=== PATIENT | female | born 1985 | race Caucasian/White ===

== ENCOUNTER 2017-04-10 13:53 | Emergency (ER) | payer SELFPAY ==
[~2017-04-10] VITALS: Ht 154.9 cm; Wt 81.2 kg
[~2017-04-10 13:53] MED LIST: DIVA500T2 PO; TRAZ100T12 PO
[2017-04-10 14:56] LABS: BILIRUBIN,URINE NEGATIVE (NEG); GLUCOSE,URINE NEGATIVE (NEG); NITRITE,URINE POSITIVE (NEG); PROTEIN,URINE 30 mg/dL (NEG-TRACE)
[2017-04-10 15:06] LABS: BASO # 0.1 x10^3/uL (0.0-0.2); BASO % 1 % (0-3); EOS % 2 % (0-3); HEMATOCRIT 49.9 % (36.0-47.0); HEMOGLOBIN 16.8 g/dL (12.0-15.5); LYMPH # 2.6 x10^3/uL (1.0-4.8); LYMPH % 25 % (24-48); MEAN CORPUSCULAR HEMOGLOBIN 34 pg (25-35); MEAN CORPUSCULAR HGB CONC 34 g/dL (31-37); MEAN CORPUSCULAR VOLUME 100 fL (79-100); MONO % 6 % (0-9); NEUT % 67 % (31-73); PLATELET COUNT 210 x10^3/uL (140-400); RED BLOOD COUNT 4.98 x10^6/uL (3.50-5.40); RED CELL DISTRIBUTION WIDTH 16.7 % (11.5-14.5); WHITE BLOOD COUNT 10.4 x10^3/uL (4.0-11.0)
[2017-04-10 15:15] LABS: BACTERIA,URINE MODERATE /HPF (0-FEW); SQUAMOUS EPITHELIAL CELL,UR OCC /LPF
[2017-04-10 15:21] LABS: CALCIUM 9.2 mg/dL (8.5-10.1); CREATININE 0.9 mg/dL (0.6-1.0); GFR 72.1; POTASSIUM 3.8 mmol/L (3.5-5.1)
[2017-04-10 15:26] LABS: ALBUMIN 3.4 g/dL (3.4-5.0); ALBUMIN/GLOBULIN RATIO 0.9 (1.0-1.7); TOTAL BILIRUBIN 0.8 mg/dL (0.2-1.0); TOTAL PROTEIN 7.1 g/dL (6.4-8.2)
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
[2017-04-10] MEDS ORDERED: CIPR500T94 PO (16:28)
[2017-04-10] MEDS ORDERED: cefTRIAXone IM 250 MG VIAL IM ONE (16:30)
[2017-04-10] MEDS ORDERED: AZITHROMYCIN 250 MG TABLET. PO ONE (16:30)
[2017-04-10 16:38] VITALS: BP 112/67
== END 2017-04-10 17:01 | disposition home or self-care (01) ==
LOC: ER 13:53
DX: N39.0 Urinary tract infection, site not specified (principal); N73.9 Female pelvic inflammatory disease, unspecified; F41.9 Anxiety disorder, unspecified; F43.10 Post-traumatic stress disorder, unspecified; F31.9 Bipolar disorder, unspecified; F12.10 Cannabis abuse, uncomplicated; F17.200 Nicotine dependence, unspecified, uncomplicated
CPT/HCPCS: 36415; 80053; 81001; 82947; 84703; 85027; 87086; 87186; 87491; 87591; 96372; 99284; J0696; Q0111; Q0144; 81025

== ENCOUNTER 2017-05-30 00:21 | Emergency (ER) | payer SELFPAY ==
[~2017-05-30] VITALS: Ht 167.6 cm; Wt 77.1 kg
[~2017-05-30 00:21] MED LIST changes: +CIPR500T94 PO
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
--- NOTE | 2017-05-30 02:21 | RAD ---
INDICATION: Trauma COMPARISON: None. TECHNIQUE: Axial CT images obtained through the head, face and cervical spine without intravenous contrast. Coronal and sagittal reformats processed of cervical spine. One or more of the following individualized dose reduction techniques were utilized for this examination: 1. Automated exposure control; 2. Adjustment of the mA and/or kV according to patient size; 3. Use of iterative reconstruction technique. FINDINGS: Head: No intracranial hemorrhage. No midline shift. Basal cisterns patents. Ventricles and sulci are within normal limits. No acute osseous abnormality. Cervical: No definite acute fracture. No significant malalignment. No evidence of perivertebral hematoma. Facial: Right frontal scalp cephalohematoma. No retro-orbital mass or hematoma. Suspected right inferior orbital wall fracture. There is fat extending through the defect. The inferior medial aspect of the inferior rectus muscle may also extend into the defect for a short distance. IMPRESSION: No acute intracranial hemorrhage. No definite acute fracture or dislocation of the cervical spine. Right frontal scalp cephalohematoma. 41 x 28 mm lytic lesion right side of mandible. Difficult to tell if this is secondary to causes such as odontogenic disease with destruction of mandible or if this is secondary to a lytic destructive mass within the region including from infectious etiology or neoplastic causes. If further clarification is desired nonemergent MRI with and without contrast could further evaluate. Additional periapical lucency at multiple right-sided maxillary teeth could be from odontogenic disease with periapical abscess. Suspected right inferior orbital wall fracture. Electronically signed by: Abel Jeronimo MD (05/30/2017 2:17 AM) [facility]
[2017-05-30 03:00] VITALS: BP 147/80
== END 2017-05-30 03:07 | disposition home or self-care (01) ==
LOC: ER 00:21
DX: S09.90XA Unspecified injury of head, initial encounter (principal); F43.10 Post-traumatic stress disorder, unspecified; F31.9 Bipolar disorder, unspecified; F12.10 Cannabis abuse, uncomplicated; Y08.89XA Assault by other specified means, initial encounter; Y93.89 Activity, other specified; Y99.8 Other external cause status; Y92.89 Other specified places as the place of occurrence of the external cause
CPT/HCPCS: 51701; 70450; 70486; 72125; 81025; 99284-25

== ENCOUNTER 2018-04-11 17:41 | Observation (INO) | payer OTHER ==
[2018-04-11] MEDS ORDERED: IV RINGERS,LACTATED 1000ML 1,000 ML IV (18:17)
[2018-04-11 18:29] LABS: BILIRUBIN,URINE NEGATIVE (NEG); CLARITY,URINE CLEAR; COLOR,URINE YELLOW; GLUCOSE,URINE NEGATIVE (NEG); NITRITE,URINE NEGATIVE (NEG); PH,URINE 6.5; PROTEIN,URINE NEGATIVE (NEG-TRACE)
[2018-04-11 18:36] LABS: BACTERIA,URINE FEW /HPF (0-FEW); HYALINE CASTS, URINE FEW /HPF; RBC,URINE OCC /HPF (0-2); SQUAMOUS EPITHELIAL CELL,UR MOD /LPF
[2018-04-11 18:44] LABS: BARBITURATES NEG (NEG); BENZODIAZEPINES NEG (NEG); CANNABINOIDS NEG (NEG); COCAINE NEG (NEG); METHADONE NEG (NEG); OPIATES NEG (NEG); PHENCYCLIDINE NEG (NEG)
[2018-04-11 18:50] LABS: AMPHETAMINE/METHAMPHETAMINE NEG (NEG); ETHANOL, URINE NEG (NEG)
== END 2018-04-11 19:40 | disposition home or self-care (01) ==
LOC: 3 SO LND 17:41
DX: O46.93 Antepartum hemorrhage, unspecified, third trimester (principal); Z3A.35 35 weeks gestation of pregnancy
CPT/HCPCS: 80307; 81001; 87086; G0378; G0379

== ENCOUNTER 2018-05-07 08:11 | Inpatient (IN) | payer OTHER ==
[2018-05-07] MEDS ORDERED: IBUPROFEN 800 MG TABLET. PO (08:45)
[2018-05-07] MEDS ORDERED: OXYTOCIN 30 UNIT/500 ML PREMIX 500 ML IV ×2 (08:45→18:15)
[2018-05-07] MEDS ORDERED: LIDOCAINE 1% PF 30 ML VIAL. INJ (08:45)
[2018-05-07] MEDS: fentaNYL PF VIAL 100 MCG/2 ML VIAL IV (08:58)
[2018-05-07] MEDS: CITRIC ACID/SODIUM CITRATE 30 ML SOLUTION. PO (08:59)
[2018-05-07] MEDS: IV RINGERS,LACTATED 1000ML 1,000 ML IV ×3 (09:01→16:11)
[2018-05-07 09:02] LABS: BILIRUBIN,URINE NEGATIVE (NEG); CLARITY,URINE CLOUDY; COLOR,URINE YELLOW; GLUCOSE,URINE NEGATIVE (NEG); NITRITE,URINE NEGATIVE (NEG); PH,URINE 7.5; PROTEIN,URINE NEGATIVE (NEG-TRACE); UROBILINOGEN,URINE 0.2 mg/dL (0.2 mg/dL)
[2018-05-07] MEDS: PENICILLIN G K 5,000,000 UNIT in IV DEXTROSE 5% 100ML 100 ML IV (09:03)
[2018-05-07] MEDS: ONDANSETRON PF 4 MG/2 ML VIAL. IV (09:05)
[2018-05-07 09:22] LABS: BARBITURATES NEG (NEG); BENZODIAZEPINES NEG (NEG); CANNABINOIDS NEG (NEG); COCAINE NEG (NEG); METHADONE NEG (NEG); OPIATES NEG (NEG); PHENCYCLIDINE NEG (NEG)
[2018-05-07 09:24] LABS: ADD MAN DIFF? NO
[2018-05-07 09:28] LABS: SQUAMOUS EPITHELIAL CELL,UR MANY /LPF
[2018-05-07 09:29] LABS: AMORPHOUS SEDIMENT,UR PRESENT /HPF; BACTERIA,URINE MANY /HPF (0-FEW)
[2018-05-07 09:31] LABS: BASO % 0 % (0-3); EOS # 0.1 x10^3/uL (0.0-0.7); EOS % 1 % (0-3); HEMATOCRIT 39.1 % (36.0-47.0); HEMOGLOBIN 13.5 g/dL (12.0-15.5); LYMPH # 2.9 x10^3/uL (1.0-4.8); LYMPH % 28 % (24-48); MEAN CORPUSCULAR HEMOGLOBIN 33 pg (25-35); MEAN CORPUSCULAR HGB CONC 35 g/dL (31-37); MEAN CORPUSCULAR VOLUME 96 fL (79-100); MONO # 0.9 x10^3/uL (0.0-1.1); MONO % 9 % (0-9); NEUT # 6.4 x10^3uL (1.8-7.7); NEUT % 61 % (31-73); PLATELET COUNT 175 x10^3/uL (140-400); RED BLOOD COUNT 4.07 x10^6/uL (3.50-5.40); RED CELL DISTRIBUTION WIDTH 13.9 % (11.5-14.5); WHITE BLOOD COUNT 10.5 x10^3/uL (4.0-11.0)
[2018-05-07 09:48] LABS: AMPHETAMINE/METHAMPHETAMINE NEG (NEG); ETHANOL, URINE NEG (NEG)
[2018-05-07] MEDS ORDERED: L&D EPIDURAL SYRINGE 50 ML EP (09:56)
[2018-05-07] MEDS ORDERED: ROPIVacaine 0.2% IN 0.9%NACL PF 40 MG/20 ML DISP.SYRIN. ×2 (09:56→10:00)
[2018-05-07] MEDS ORDERED: ONDANSETRON PF 4 MG/2 ML VIAL. IV (10:00)
[2018-05-07] MEDS ORDERED: NALOXONE 0.4 MG/ML VIAL. IV (10:00)
[2018-05-07] MEDS ORDERED: ePHEDrine PF IN SALINE 50 MG/5 ML DISP.SYRIN IV (10:00)
[2018-05-07] MEDS ORDERED: ROPIVacaine 0.2% PF 10 ML VIAL. EPI (10:00)
[2018-05-07] MEDS: L&D EPIDURAL SYRINGE 50 ML EP ×3 (10:27→17:11)
[2018-05-07] MEDS: fentaNYL PF VIAL 100 MCG/2 ML VIAL EPI (10:28)
[2018-05-07] MEDS: PENICILLIN G K 2,500,000 UNIT in IV DEXTROSE 5% 50 ML IV (12:51)
[2018-05-07] MEDS: OXYTOCIN 30 UNIT/500 ML PREMIX 500 ML IV (16:11)
[2018-05-07] MEDS ORDERED: PANTOPRAZOLE IV PUSH 40 MG VIAL. IVP (17:30)
[2018-05-07] MEDS ORDERED: ZOLPIDEM 5 MG TABLET. PO (18:15)
[2018-05-07] MEDS ORDERED: ACETAMINOPHEN 325 MG TABLET. PO (18:15)
[2018-05-07] MEDS ORDERED: SIMETHICONE 80 MG TAB.CHEW PO (18:15)
[2018-05-07] MEDS ORDERED: BENZOCAINE 20% TOPICAL AEROSOL SPRAY 57GM CAN. TP (18:15)
[2018-05-07] MEDS ORDERED: 0.9 % SODIUM CHLORIDE 10 ML DISP.SYRIN. IV (18:15)
[2018-05-07] MEDS ORDERED: diphenhydrAMINE HCL 25 MG CAPSULE PO (18:15)
[2018-05-07] MEDS ORDERED: HYDROCORTISONE 1% TOPICAL OINTMENT 30GM TUBE. TP (18:15)
[2018-05-07] MEDS ORDERED: MMR per PROTOCOL. MC (18:15)
[2018-05-07] MEDS ORDERED: PHENYLEPH/MINERAL OIL/PETROLAT RECTAL OINTMENT 28GM TUBE. RC (18:15)
[2018-05-07] MEDS: IBUPROFEN 800 MG TABLET. PO (20:33)
[2018-05-07] MEDS: MAG HYDROX/ALUMINUM HYD/SIMETH 30 ML ORAL.SUSP PO (23:38)
[2018-05-08] MEDS: IBUPROFEN 800 MG TABLET. PO ×2 (04:40→17:53)
[2018-05-08 05:02] LABS: ADD MAN DIFF? NO
[2018-05-08 05:07] LABS: BASO # 0.1 x10^3/uL (0.0-0.2); BASO % 1 % (0-3); EOS # 0.1 x10^3/uL (0.0-0.7); EOS % 1 % (0-3); HEMATOCRIT 34.9 % (36.0-47.0); LYMPH # 2.9 x10^3/uL (1.0-4.8); LYMPH % 20 % (24-48); MEAN CORPUSCULAR HEMOGLOBIN 34 pg (25-35); MEAN CORPUSCULAR HGB CONC 35 g/dL (31-37); MEAN CORPUSCULAR VOLUME 97 fL (79-100); MONO # 1.2 x10^3/uL (0.0-1.1); MONO % 9 % (0-9); NEUT # 9.8 x10^3uL (1.8-7.7); NEUT % 70 % (31-73); PLATELET COUNT 146 x10^3/uL (140-400); RED BLOOD COUNT 3.59 x10^6/uL (3.50-5.40); RED CELL DISTRIBUTION WIDTH 13.9 % (11.5-14.5)
[2018-05-08] MEDS: DOCUSATE SODIUM 100 MG CAPSULE. PO (09:09)
[2018-05-08] MEDS: FERROUS SULFATE 325 MG TABLET. PO (09:09)
[2018-05-08] MEDS: oxyCODONE/APAP 5/325 1 TAB TABLET PO (09:10)
[2018-05-09] MEDS: MAGNESIUM HYDROXIDE 2,400 MG/30 ML ORAL.SUSP. PO (09:00)
[2018-05-09] MEDS: DOCUSATE SODIUM 100 MG CAPSULE. PO (09:01)
[2018-05-09] MEDS: IBUPROFEN 800 MG TABLET. PO (09:01)
[2018-05-09 14:58] LABS: FETAL SCREEN 1 1
[2018-05-09] MEDS: DIPHTH,PERTUSS(ACELL),TET TOX 0.5 ML DISP.SYRIN. VAX IM (15:09)
== END 2018-05-09 17:27 | disposition home or self-care (01) | DRG 775 ==
LOC: 3 SO LND 08:11 → 3 NORTH 21:10
PROC: 10E0XZZ Delivery of Products of Conception, External Approach (ICD-10-PCS; principal; 2018-05-07)
PROC: 0HQ9XZZ Repair Perineum Skin, External Approach (ICD-10-PCS; 2018-05-07)
PROC: 00HU33Z Insertion of Infusion Device into Spinal Canal, Percutaneous Approach (ICD-10-PCS; 2018-05-07)
PROC: 3E0R3BZ Introduction of Anesthetic Agent into Spinal Canal, Percutaneous Approach (ICD-10-PCS; 2018-05-07)
PROC: 3E0234Z Introduction of Serum, Toxoid and Vaccine into Muscle, Percutaneous Approach (ICD-10-PCS; 2018-05-09)
DX: O99.824 Streptococcus B carrier state complicating childbirth (principal); Z37.0 Single live birth; O77.0 Labor and delivery complicated by meconium in amniotic fluid; Z3A.39 39 weeks gestation of pregnancy; O70.0 First degree perineal laceration during delivery; Z23 Encounter for immunization
CPT/HCPCS: 36415; 80307; 81001; 85025; 85461; 86592; 86850; 86900; 86901; 87086; 88307; 90715; G0379; J2405; J2540; J2590; J2791; J2795; J3010; J7120

== ENCOUNTER 2018-08-07 12:55 | Emergency (ER) | payer OTHER ==
[~2018-08-07] VITALS: Ht 154.9 cm; Wt 69.9 kg
[~2018-08-07 12:55] MED LIST changes: +IBUP800T19 PO; +ONDA8TAB9 PO; +TRAZ-86 PO; -TRAZ100T12 PO
[2018-08-07] MEDS ORDERED: predniSONE 10 MG TABLET PO ONE (14:30)
[2018-08-07] MEDS ORDERED: IPRATRPIUM/ALBUTEROL 0.5/2.5MG 3 ML NEBU. NEB ONE (14:30)
[2018-08-07] MEDS ORDERED: BENZONATATE 100 MG CAPSULE. PO ONE (14:30)
--- NOTE | 2018-08-07 14:42 | RAD ---
EXAM: Chest, single view. HISTORY: Short of breath. COMPARISON: None. FINDINGS: A frontal view of the chest is obtained. There is no infiltrate, pleural effusion or pneumothorax. The heart is normal in size. IMPRESSION: No acute pulmonary finding. Electronically signed by: Tiffany Grant MD (08/07/2018 2:39 PM) [place] [id number]
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
[2018-08-07] MEDS ORDERED: BENZ100C PO (15:55)
[2018-08-07] MEDS ORDERED: VENTOLIN HFA18 GM INH (15:55)
[2018-08-07] MEDS ORDERED: diazePAM 5 MG TABLET PO ONE (16:00)
[2018-08-07 16:18] VITALS: BP 129/61
--- NOTE | 2018-08-07 19:15 | EKG ---
[facility] [address] [place] [address] Test Date: 2018-08-07 Test Time: 14:12:56 Pat Name: STEFANIE LINN Department: Room: Gender: Female [employer]ine Plant [employer]: : 1985 Requested By: STAFF NON Order Number: [id number] Reading MD: iNco Simmons MD Measurements Intervals [place] Rate: 107 P: 129 MS: 122 QRS: 87 QRSD: 78 T: 41 QT: 326 QTc: 441 Interpretive Statements SINUS TACHYCARDIA BASELINE ARTIFACT NON-SPECIFIC ST/T CHANGES Electronically Signed On 08-08-2018 8:09:38 CDT by Nico Simmons MD
== END 2018-08-07 16:34 | disposition home or self-care (01) ==
LOC: ER 12:55
DX: J06.9 Acute upper respiratory infection, unspecified (principal); F41.9 Anxiety disorder, unspecified; F31.9 Bipolar disorder, unspecified; F43.10 Post-traumatic stress disorder, unspecified; F17.210 Nicotine dependence, cigarettes, uncomplicated
CPT/HCPCS: 71045; 93005; 94640; 99284; J7512; J7620

== ENCOUNTER → 2020-03-23 | Outpatient (CLI) | payer MEDICAID, OTHER ==
[~2020-03-23] MED LIST changes: +BENZ100C PO; +TRAZ-123 PO; -TRAZ-86 PO; +VENTOLIN HFA18 GM INH
--- NOTE | 2020-03-23 11:47 | RAD ---
Examination: 1. Bilateral digital diagnostic mammogram. 2. Bilateral Limited breast ultrasound. INDICATION: 34-year-old woman with left breast lump draining purulent material. She also complains of a palpable area of concern in the right breast. She reports a history of 6 months of intermittent drainage of purulent material from the left breast requiring previous drainage of a large volume of purulent material from the left breast. TECHNIQUE: Bilateral CC and MLO views were obtained with 2-D and 3-D technique and reviewed with computer-aided detection. Thereafter, targeted ultrasound of each breast in the area of patient reported concern was performed including ultrasound of the axilla. FINDINGS: Bilateral mammogram shows breasts are almost entirely fatty replaced. Right mammogram shows a 1.2 cm long subcutaneous nodule correlating with the area of palpable concern at the inferior periareolar right breast. This is isodense to the breast parenchyma and has smooth margins with no associated calcifications or skin retraction. Targeted right breast ultrasound identifies a 1.0 x 0.8 x 0.6 cm hypoechoic nonvascular round mass in the skin with some peripheral vascularity. This most likely represents a sebaceous cyst and should be managed clinically including biopsy if clinically warranted. Sonographic survey of the right axilla reveals no adenopathy. Left mammogram shows a 1.4 cm spiculated mass in the subareolar breast associated with nipple retraction and mild skin thickening. This is mammographically suspicious and correlates with the patient's reported area of palpable concern. Targeted ultrasound of the left breast in the area of palpable concern identifies irregular hypoechoic tissue measuring 2.0 x 1.0 x 1.6 cm available o'clock position that correlates with the patient's reported area of palpable concern. No internal vascularity. Sonographic survey of the left axilla reveals a few lymph nodes with borderline cortical thickening up to 3.6 mm. Favor reactive nodes. IMPRESSION: 1. Suspicious spiculated 1.4 cm subareolar left breast mass, most likely representing phlegmon or scarring from previous breast abscess but needs tissue confirmation of a benign etiology. Recommend surgical consult for definitive management planning. It is amenable to ultrasound-guided core needle biopsy is desired for surgical planning. Discussed with patient. 2. Benign appearing palpable nodule in the subareolar right breast, favored to be a sebaceous cyst. This should be managed clinically including biopsy if there are any clinically suspicious features. BI-RADS Category 4: Suspicious. Recommend surgical consult BI-RADS 4 -- suspicious abnormality, biopsy recommended
== END | disposition home or self-care (01) ==
LOC: MAMMO 10:10
PROVIDERS: ATTEND Specialist
DX: N63.20 Unspecified lump in the left breast, unspecified quadrant (principal); N63.10 Unspecified lump in the right breast, unspecified quadrant
CPT/HCPCS: 76641; 77066; G0279; 77062

== ENCOUNTER → 2020-04-24 | Outpatient (CLI) | payer MEDICAID ==
[~2020-04-24] MED LIST changes: +ALPR2TAB2 PO; +CARI6CAP PO; +LEXAPRO20 MG PO; +MIRT15TA PO; +OXYC-325 PO; +SULF1TAB24 PO
--- NOTE | 2020-04-27 13:31 | HP ---
ADMIT DATE: HISTORY OF PRESENT ILLNESS: The patient about 8 months ago had a mass of the left breast that proved to be an abscess and this was drained apparent in the Emergency Room. Since that time, she has had continuous drainage there and mass is not going away totally and she also has a mass under the nipple. This is all on the left. She did have a mass in the right breast that did not drain and get infected and this is decreasing now. PAST MEDICAL HISTORY: Shows she has had childhood diseases, which was normal. She has had no surgery. She has no diabetes, high blood pressure or other diseases to her knowledge. She has only had a tooth pulled and has never had a . ALLERGIES: She has no allergies. MEDICATIONS: She takes no medication. SOCIAL HISTORY: She smokes marijuana on occasion, but does not smoke, drink or use illicit drugs. FAMILY HISTORY: Noncontributory. REVIEW OF SYSTEMS: Negative except for the left breast, which has a chronic draining area there just medial to the top portion of areolar tissue and it is probably medial to the nipple about 2-3 cm. PHYSICAL EXAMINATION: GENERAL: Shows an alert female in no acute distress. HEAD, EYES, NOSE AND THROAT: Grossly normal. CHEST: Clear to auscultation bilaterally. HEART: Had no heaves, friction rubs, murmurs or other abnormalities and the rate was 74 beats per minute and it was regular. ABDOMEN: Not examined. BREASTS: The examination of the axillary areas, right and left was negative. The right breast examination did show a small mass which could not be seen mammographically and is much smaller than it had been previously. I did examine her prior to this and she did have a mass, which was prominent, but now it is going away, is barely perceptible. The left breast, she has skin retraction as she had before. No pus could be seen at this time and she has a track from this area just a little superior and medial to the nipple, goes 3-4 cm up to under the nipple. There is no evidence of infection, inflammation or anything at this time and no pus could be obtained. The mass is firm and per x-rays prove not to be cystic. IMPRESSION: 1. Mass of the left breast. 2. Chronic infection of left breast. PLAN: To remove the mass and the infected area. The mammogram was done, did show a suspicious area in this area and she did not want any biopsies as she wanted it removed and she wanted the chronic infection also treated. Therefore, we will excise all the area and she realizes this may leave her with her somewhat deformed nipple and it may invert. She understands this and stated she did not care. She wanted the mass out. VALERY VALLADARES MD DR: NATALIIA/luz JOB#: [id number] / [id number] RUTH
== END ==
LOC: LAB 13:08
PROVIDERS: ATTEND Specialist
DX: N63.20 Unspecified lump in the left breast, unspecified quadrant (principal); Z01.818 Encounter for other preprocedural examination; Z11.59 Encounter for screening for other viral diseases
CPT/HCPCS: 36415; U0003

== ENCOUNTER 2020-04-28 07:26 | Day surgery (SDC) | payer MEDICAID ==
[~2020-04-28] VITALS: Ht 154.9 cm; Wt 61.2 kg
--- NOTE | 2020-04-28 06:52 | HP ---
ADMIT DATE: HISTORY OF PRESENT ILLNESS: The patient about 8 months ago had a mass of the left breast that proved to be an abscess and this was drained apparent in the Emergency Room. Since that time, she has had continuous drainage there and mass is not going away totally and she also has a mass under the nipple. This is all on the left. She did have a mass in the right breast that did not drain and get infected and this is decreasing now. PAST MEDICAL HISTORY: Shows she has had childhood diseases, which was normal. She has had no surgery. She has no diabetes, high blood pressure or other diseases to her knowledge. She has only had a tooth pulled and has never had a . ALLERGIES: She has no allergies. MEDICATIONS: She takes no medication. SOCIAL HISTORY: She smokes marijuana on occasion, but does not smoke, drink or use illicit drugs. FAMILY HISTORY: Noncontributory. REVIEW OF SYSTEMS: Negative except for the left breast, which has a chronic draining area there just medial to the top portion of areolar tissue and it is probably medial to the nipple about 2-3 cm. PHYSICAL EXAMINATION: GENERAL: Shows an alert female in no acute distress. HEAD, EYES, NOSE AND THROAT: Grossly normal. CHEST: Clear to auscultation bilaterally. HEART: Had no heaves, friction rubs, murmurs or other abnormalities and the rate was 74 beats per minute and it was regular. ABDOMEN: Not examined. BREASTS: The examination of the axillary areas, right and left was negative. The right breast examination did show a small mass which could not be seen mammographically and is much smaller than it had been previously. I did examine her prior to this and she did have a mass, which was prominent, but now it is going away, is barely perceptible. The left breast, she has skin retraction as she had before. No pus could be seen at this time and she has a track from this area just a little superior and medial to the nipple, goes 3-4 cm up to under the nipple. There is no evidence of infection, inflammation or anything at this time and no pus could be obtained. The mass is firm and per x-rays prove not to be cystic. IMPRESSION: 1. Mass of the left breast. 2. Chronic infection of left breast. PLAN: To remove the mass and the infected area. The mammogram was done, did show a suspicious area in this area and she did not want any biopsies as she wanted it removed and she wanted the chronic infection also treated. Therefore, we will excise all the area and she realizes this may leave her with her somewhat deformed nipple and it may invert. She understands this and stated she did not care. She wanted the mass out. VALERY VALLADARES MD DR: NATALIIA/luz JOB#: [id number] / [id number] RUTH
[~2020-04-28 07:26] MED LIST changes: +HYDROmorphone 2 MG/ML VIAL IV PRN; +IV RINGERS,LACTATED 1000ML 1,000 ML IV SCH; +LIDOCAINE 1% PF 2 ML VIAL. ID PRN; +MORPHINE SULFATE 2 MG/ML VIAL. IV PRN; +ONDANSETRON PF 4 MG/2 ML VIAL. IV PRN; -OXYC-325 PO; +PROCHLORPERAZINE 10 MG/2 ML VIAL. IV PRN; -SULF1TAB24 PO; +ceFAZolin SODIUM IV Push 1 GM VIAL. IVP PRN; +fentaNYL PF VIAL 100 MCG/2 ML VIAL IV PRN
[2020-04-28 08:07] LABS: BASO # 0.1 x10^3/uL (0.0-0.2); BASO % 1 % (0-3); EOS # 0.3 x10^3/uL (0.0-0.7); EOS % 2 % (0-3); HEMATOCRIT 46.4 % (36.0-47.0); HEMOGLOBIN 15.7 g/dL (12.0-15.5); LYMPH # 3.1 x10^3/uL (1.0-4.8); LYMPH % 28 % (24-48); MEAN CORPUSCULAR HEMOGLOBIN 32 pg (25-35); MEAN CORPUSCULAR HGB CONC 34 g/dL (31-37); MEAN CORPUSCULAR VOLUME 93 fL (79-100); MONO # 1.2 x10^3/uL (0.0-1.1); MONO % 10 % (0-9); NEUT # 6.5 x10^3/uL (1.8-7.7); NEUT % 59 % (31-73); PLATELET COUNT 252 x10^3/uL (140-400); RED BLOOD COUNT 4.98 x10^6/uL (3.50-5.40); RED CELL DISTRIBUTION WIDTH 15.6 % (11.5-14.5); WHITE BLOOD COUNT 11.2 x10^3/uL (4.0-11.0)
[2020-04-28 08:17] LABS: PROTHROMBIN TIME PATIENT 11.9 SEC (11.7-14.0)
[2020-04-28 08:21] LABS: CALCIUM 8.9 mg/dL (8.5-10.1); CREATININE 1.1 mg/dL (0.6-1.0); GFR 56.2; POTASSIUM 4.6 mmol/L (3.5-5.1)
[2020-04-28] MEDS ORDERED: ONDANSETRON PF 4 MG/2 ML VIAL. ONE (08:26)
[2020-04-28] MEDS ORDERED: LIDOCAINE 2% PF 5 ML VIAL. ONE (08:26)
[2020-04-28] MEDS ORDERED: PROPOFOL 10 MG/ML (20ML) VIAL. IV ONE ×3 (08:26→10:53)
[2020-04-28] MEDS ORDERED: DEXAMETHASONE SOD PHOS 4 MG/ML VIAL ONE (08:26)
[2020-04-28 08:27] LABS: ALBUMIN 3.4 g/dL (3.4-5.0); ALBUMIN/GLOBULIN RATIO 1.1 (1.0-1.7); TOTAL BILIRUBIN 0.2 mg/dL (0.2-1.0); TOTAL PROTEIN 6.6 g/dL (6.4-8.2)
[2020-04-28] MEDS ORDERED: fentaNYL PF VIAL 100 MCG/2 ML VIAL ONE ×3 (08:27→11:36)
[2020-04-28] MEDS ORDERED: MIDAZOLAM HCL/PF 2 MG/2 ML VIAL. ONE (08:27)
[2020-04-28] MEDS ORDERED: BUPIVACAINE-EPI 0.5%-1:200000 MPF 30 ML VIAL. ONE (09:07)
--- NOTE | 2020-04-28 09:09 | PDOC ---
SURGICAL PROGRESS NOTE Subjective Op Note: Surgeon..................................................Rasheed Pre op diag.............................................mass left breast Post op diag...........................................mass left breast nd zbscess left breast Anesthesia.............................................general Procedure..............................................wide excision mass left breast and drainage abscess left bvreast Drains...................................................1/4 inch alexus drain fluids.....................................................see anesthesia sheet Blood loss.............................................10cc Condition...............................................satisfactory Vital Signs Vital Signs Date Time Temp Pulse Resp B/P (MAP) Pulse Ox O2 Delivery O2 Flow Rate FiO2 04/28/20 07:53 98.0 77 20 90/60 96 Room Air 98.0 Labs Laboratory Tests Test 04/28/20 07:40 04/28/20 07:54 Bedside Urine HCG, Qualitative Hcg negative (Negative) White Blood Count 11.2 x10^3/uL (4.0-11.0) Red Blood Count 4.98 x10^6/uL (3.50-5.40) Hemoglobin 15.7 g/dL (12.0-15.5) Hematocrit 46.4 % (36.0-47.0) Mean Corpuscular Volume 93 fL (79-100) Mean Corpuscular Hemoglobin 32 pg (25-35) Mean Corpuscular Hemoglobin Concent 34 g/dL (31-37) Red Cell Distribution Width 15.6 % (11.5-14.5) Platelet Count 252 x10^3/uL (140-400) Neutrophils (%) (Auto) 59 % (31-73) Lymphocytes (%) (Auto) 28 % (24-48) Monocytes (%) (Auto) 10 % (0-9) Eosinophils (%) (Auto) 2 % (0-3) Basophils (%) (Auto) 1 % (0-3) Neutrophils # (Auto) 6.5 x10^3/uL (1.8-7.7) Lymphocytes # (Auto) 3.1 x10^3/uL (1.0-4.8) Monocytes # (Auto) 1.2 x10^3/uL (0.0-1.1) Eosinophils # (Auto) 0.3 x10^3/uL (0.0-0.7) Basophils # (Auto) 0.1 x10^3/uL (0.0-0.2) Prothrombin Time 11.9 SEC (11.7-14.0) Prothromb Time International Ratio 0.9 (0.8-1.1) Sodium Level 142 mmol/L (136-145) Potassium Level 4.6 mmol/L (3.5-5.1) Chloride Level 105 mmol/L (98-107) Carbon Dioxide Level 26 mmol/L (21-32) Anion Gap 11 (6-14) Blood Urea Nitrogen 14 mg/dL (7-20) Creatinine 1.1 mg/dL (0.6-1.0) Estimated GFR (Cockcroft-Gault) 56.2 BUN/Creatinine Ratio 13 (6-20) Glucose Level 101 mg/dL (70-99) Calcium Level 8.9 mg/dL (8.5-10.1) Total Bilirubin 0.2 mg/dL (0.2-1.0) Aspartate Amino Transf (AST/SGOT) 13 U/L (15-37) Alanine Aminotransferase (ALT/SGPT) 16 U/L (14-59) Alkaline Phosphatase 79 U/L (46-116) Total Protein 6.6 g/dL (6.4-8.2) Albumin 3.4 g/dL (3.4-5.0) Albumin/Globulin Ratio 1.1 (1.0-1.7) Laboratory Tests Test 04/28/20 07:40 04/28/20 07:54 Bedside Urine HCG, Qualitative Hcg negative (Negative) White Blood Count 11.2 x10^3/uL (4.0-11.0) Red Blood Count 4.98 x10^6/uL (3.50-5.40) Hemoglobin 15.7 g/dL (12.0-15.5) Hematocrit 46.4 % (36.0-47.0) Mean Corpuscular Volume 93 fL (79-100) Mean Corpuscular Hemoglobin 32 pg (25-35) Mean Corpuscular Hemoglobin Concent 34 g/dL (31-37) Red Cell Distribution Width 15.6 % (11.5-14.5) Platelet Count 252 x10^3/uL (140-400) Neutrophils (%) (Auto) 59 % (31-73) Lymphocytes (%) (Auto) 28 % (24-48) Monocytes (%) (Auto) 10 % (0-9) Eosinophils (%) (Auto) 2 % (0-3) Basophils (%) (Auto) 1 % (0-3) Neutrophils # (Auto) 6.5 x10^3/uL (1.8-7.7) Lymphocytes # (Auto) 3.1 x10^3/uL (1.0-4.8) Monocytes # (Auto) 1.2 x10^3/uL (0.0-1.1) Eosinophils # (Auto) 0.3 x10^3/uL (0.0-0.7) Basophils # (Auto) 0.1 x10^3/uL (0.0-0.2) Prothrombin Time 11.9 SEC (11.7-14.0) Prothromb Time International Ratio 0.9 (0.8-1.1) Sodium Level 142 mmol/L (136-145) Potassium Level 4.6 mmol/L (3.5-5.1) Chloride Level 105 mmol/L (98-107) Carbon Dioxide Level 26 mmol/L (21-32) Anion Gap 11 (6-14) Blood Urea Nitrogen 14 mg/dL (7-20) Creatinine 1.1 mg/dL (0.6-1.0) Estimated GFR (Cockcroft-Gault) 56.2 BUN/Creatinine Ratio 13 (6-20) Glucose Level 101 mg/dL (70-99) Calcium Level 8.9 mg/dL (8.5-10.1) Total Bilirubin 0.2 mg/dL (0.2-1.0) Aspartate Amino Transf (AST/SGOT) 13 U/L (15-37) Alanine Aminotransferase (ALT/SGPT) 16 U/L (14-59) Alkaline Phosphatase 79 U/L (46-116) Total Protein 6.6 g/dL (6.4-8.2) Albumin 3.4 g/dL (3.4-5.0) Albumin/Globulin Ratio 1.1 (1.0-1.7) VALERY VALLADARES MD Apr 28, 2020 09:09
[2020-04-28] MEDS ORDERED: SEVOFLURANE 61 TO 120 MINUTES. IH ONE (10:48)
[2020-04-28] MEDS ORDERED: KETOROLAC 30 MG/ML VIAL. ONE (10:56)
[2020-04-28] MEDS ORDERED: IPRATRPIUM/ALBUTEROL 0.5/2.5MG 3 ML NEBU. ONE (11:26)
--- NOTE | 2020-04-28 11:42 | DISCH ---
DISCHARGE INSTRUCTIONS Condition on Discharge Condition on Discharge: Stable Activity After Discharge Activity Instructions for Disc: Activity as tolerated Lifting Instructions after Dis: No heavy lifting Driving Instructions after Dis: Do not drive today Diet after Discharge Diet after Discharge: Clear Liquid, Regular Wound Incision Care Wound/Incision Care: Other, see below Other wound/incision instructi: change dressing 2-3/day and prn Contacting the after DC Call your doctor for: Concerns you may have Follow-Up Follow up with: Dr. Lux 4-5 days VALERY VALLADARES MD Apr 28, 2020 11:42
[2020-04-28] MEDS ORDERED: IPRATRPIUM/ALBUTEROL 0.5/2.5MG 3 ML NEBU. NEB ONE (11:45)
[2020-04-28] MEDS ORDERED: OXYC-325 PO (11:57)
[2020-04-28] MEDS ORDERED: SULF1TAB24 PO (11:59)
[2020-04-28 12:03] VITALS: BP 105/62
[2020-04-28] MEDS ORDERED: oxyCODONE/APAP 5/325 1 TAB TABLET PO ONE (12:15)
--- NOTE | 2020-04-29 00:06 | OP ---
DATE OF SURGERY: 04/28/2020 SURGEON: Don Valladares MD PREOPERATIVE DIAGNOSIS: Mass of the left breast with abscess formation. POSTOPERATIVE DIAGNOSIS: Mass of the left breast with abscess formation. ANESTHESIA: General. PROCEDURE: Excision of infected mass, left breast. INDICATIONS: The patient has had a large infection of the left breast, which left her quite a bit of indentation at about the 10 o'clock position about an inch from the areola margin. The mass extended to under the nipple and on pressing that you could get pus out. We had talked about this at length with her. She has had this for about 8-10 months and is not going away. She has been tried on antibiotics and therefore, we plan to excise this area. She understands it may be a deformity, there afterwards, but she wants this removed if we can. DESCRIPTION OF PROCEDURE: As such, a fusiform incision was made following the areola margin and going out into the area where the abscess at that point and we made a fusiform incision, taking the skin and taking this around the areola margin laterally to almost 1-2 o'clock position. We used a 15 blade, went into the subcutaneous pulling with retractors laterally, Hugh retractors. We were able to use Metzenbaum scissors, knife and also cautery to go completely around the mass. We went around the mass totally and got under the nipple and we were able to dissect it off of the nipple. There was a mass that I could not tell if it was an inflammatory or not, but definitely a mass and this was all of the infected tissue that we could see was in fact removed. This was sent to pathology. Prior to doing anything, we did take cultures, however, of the purulent material that was discharging from the site where there was the indentation and retraction. We did see pus there. The wound was then irrigated. Once we got it completely removed, we used cautery for a lot of this and stopped a lot of brisk bleeding with cautery. This having been done, we then changed gloves and instruments and also had a culture of the area and then washed it out with peroxide and then a lot of saline. In view of infection, we decided we would put a drain there and then placed a Maria Isabel drain, brought it out inferiorly through the skin and sutured in place with 2-0 silk. This was a quarter-inch Jeremiah drain. We then inspected the area, all was well and we proceeded to close the deeper structures with 3-0 and 4-0 Vicryl and we closed the skin using a 6-0 interrupted nylon. The procedure was now terminated as sterile dressing was applied. The blood loss was probably 10 mL. Fluids given can be obtained from the anesthesia sheet. The drain was a quarter-inch Jeremiah drain and the condition of the patient was satisfactory as she was returned to the recovery room. The incision and the tissue removed was probably 4-5 cm in total size. There was a good cosmetic result with no skin retraction or dimpling at this point. Sterile dressing was applied as described. The procedure was now terminated as we will keep her on postoperative antibiotics. The procedure was now terminated. DON VALLADARES MD DR: NATALIIA/luz JOB#: [id number] / [id number] RUTH
--- NOTE | 2020-04-30 16:06 | PATHOLOGY ---
[facility] Accession Number: [id number] . 01 Material submitted: . breast - LEFT BREAST MASS. Modifiers: left . 01 Clinical history: . L breast mass . 02 Diagnosis: Skin and breast tissue, left breast mass excision: - Breast abscess and cutaneous sinus tract, with fibrosis and chronic inflammation of surrounding breast tissue and focal foreign body giant cell reaction. (JPM:jayro; 04/30/2020) S 04/30/2020 1457 Local . 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 The abscess is focally lined by keratinizing stratified squamous epithelium. There is focal foreign body giant granulomatous reaction to keratinaceous material. There is no evidence of malignancy. (JPM:jayro; 04/30/2020) . 02 Electronically signed: . Brandin Michel MD, Pathologist NPI- [id number] . 01 Gross description: . The specimen is received in formalin, labeled "Caro Salcido, left breast mass, single stitch lateral, double stitch medial". Received is a 9 g lumpectomy specimen measuring 3.6 x 3.1 x 2.5 cm in greatest dimensions, with the greatest measurement being from medial to lateral. There is a small ellipse of skin present near the lateral aspect 0.8 x 0.9 cm. The specimen is inked as follows: Lateral-red, medial-yellow, remainder of specimen-black. Sectioning reveals a possible abscess cyst measuring 1.5 x 0.7 x 0.5 cm in greatest dimensions. The remainder of the specimen displays bright yellow fibrofatty cut surfaces. The specimen is submitted entirely from medial to lateral aspects in cassettes A1 through A10. The cold ischemic time is 5 minutes. The total formalin fixation time is 36 hours and 5 minutes. (CAA; 04/29/2020) QAC/QAC 04/29/2020 1624 Local . 02 Pathologist provided ICD-10: N61.1, N60.32, N61.0 . 02 CPT . 828190 Specimen Comment: A courtesy copy of this report has been sent to [phone], [phone] Specimen Comment: [id number] Specimen Comment: Report sent to / DR EM Performed at: 01 [facility] [address] [facility] [address], [place] [id number] MD Zac Llamas MD Phone: [phone] Performed at: 02 [facility] [address] [place] [id number] MD Brandin Michel MD Phone: [phone]
== END 2020-04-28 12:25 | disposition home or self-care (01) ==
LOC: SURG 07:26
PROVIDERS: ATTEND Specialist
DX: N63.20 Unspecified lump in the left breast, unspecified quadrant (principal); N61.1 Abscess of the breast and nipple; N60.32 Fibrosclerosis of left breast; K21.9 Gastro-esophageal reflux disease without esophagitis; F41.9 Anxiety disorder, unspecified; F32.9 Major depressive disorder, single episode, unspecified; Z79.01 Long term (current) use of anticoagulants; Z87.891 Personal history of nicotine dependence; Z98.890 Other specified postprocedural states; Z87.440 Personal history of urinary (tract) infections
CPT/HCPCS: 19120; 36415; 80053; 81025; 85025; 85610; 87071; 87075; 88307; 94640; A7015; J0690; J1100; J1885; J2250; J2405; J2704; J3010; J3490

== ENCOUNTER → 2020-12-04 | Outpatient (CLI) | payer MEDICAID ==
[~2020-12-04] MED LIST changes: -HYDROmorphone 2 MG/ML VIAL IV PRN; -IV RINGERS,LACTATED 1000ML 1,000 ML IV SCH; -LIDOCAINE 1% PF 2 ML VIAL. ID PRN; +LORA-434 PO; +MIRT-36 PO; -MIRT15TA PO; -MORPHINE SULFATE 2 MG/ML VIAL. IV PRN; -ONDANSETRON PF 4 MG/2 ML VIAL. IV PRN; +OXYC-325 PO; +PARO20TA99 PO; -PROCHLORPERAZINE 10 MG/2 ML VIAL. IV PRN; +SULF1TAB24 PO; -ceFAZolin SODIUM IV Push 1 GM VIAL. IVP PRN; -fentaNYL PF VIAL 100 MCG/2 ML VIAL IV PRN
== END ==
LOC: LAB 10:15
PROVIDERS: ATTEND Specialist
DX: Z01.812 Encounter for preprocedural laboratory examination (principal); Z20.828 Contact with and (suspected) exposure to other viral communicable diseases
CPT/HCPCS: U0003

== ENCOUNTER → 2020-12-08 | Day surgery (SDC) | payer MEDICAID ==
[~2020-12-08] MED LIST changes: +LIDOCAINE 1%/EPI 1:100,000 20 ML VIAL. INJ ONE; -PARO20TA99 PO
[2020-12-08 10:33] VITALS: BP 112/68
--- NOTE | 2020-12-08 11:59 | PDOC ---
SURGICAL PROGRESS NOTE DATE: 12/08/20 TIME: 11:54 Op Note: Surgeon..............................................Valladares Pre op diag.........................................Mass right buttocks Post op duiag.....................................4cm mass right buttocks Anesthesia.........................................1% lidocaine with epi Procedure..........................................excision tumor right buttocks Drains...............................................none Fluids...............................................see anesthesia sheet Blood loss.........................................3cc Condition...........................................satisfactory Vital Signs Vital Signs Date Time Temp Pulse Resp B/P (MAP) Pulse Ox O2 Delivery O2 Flow Rate FiO2 12/08/20 10:33 72 20 97 Room Air 12/08/20 10:33 98.7 98.7 Justicifation of Admission Dx: Justifications for Admission: Justification of Admission Dx: Yes VALERY VALLADARES MD Dec 08, 2020 11:59
--- NOTE | 2020-12-08 12:06 | DISCH ---
DISCHARGE INSTRUCTIONS Condition on Discharge Condition on Discharge: Stable Activity After Discharge Activity Instructions for Disc: Activity as tolerated Lifting Instructions after Dis: No heavy lifting Driving Instructions after Dis: Do not drive today Diet after Discharge Diet after Discharge: Clear Liquid, Regular Additional Diet Restrictions: regular Wound Incision Care Wound/Incision Care: Other, see below Other wound/incision instructi: may shower and leave dressin on until seen by me Contacting the DR. after DC Call your doctor for: Concerns you may have Follow-Up Follow up with: sonu Valladares in 7 days VALERY VALLADARES MD Dec 08, 2020 12:06
--- NOTE | 2020-12-08 12:14 | PDOC1 ---
History and Physical Date of Admission Date of Admission DATE: 12/08/20 TIME: 12:07 Identification/Chief Complaint Chief Complaint Enlarging mass right buttocks History of Present Illness History of Present Illness mass present for a year or so and is increasing in size Past Medical History Cardiovascular: No pertinent hx Pulmonary: No pertinent hx CENTRAL NERVOUS SYSTEM: Carpal Tunnel Syndrome GI: No pertinent hx Hepatobiliary: No pertinent hx Past Surgical History Past Surgical History multiple abscess of the left brest drained and excision mass left breast done 9 month ago Family History Family History no contributory Social History ALCOHOL: heavy Drugs: Marijuana, Crystal meth Current Medications Current Medications Current Medications Lidocaine/ Epinephrine (LIDOCAINE 1%-EPI 1:100,000 Multi-Dose) 20 ml 1X ONCE INJ ; Start 12/08/20 at 10:30; Stop 12/08/20 at 10:31; Status DC Lidocaine/ Epinephrine (LIDOCAINE 1%-EPI 1:100,000 Multi-Dose) 20 ml STK-MED ONCE INJ Last administered on 12/08/20at 10:58; Start 12/08/20 at 10:58; Stop 12/08/20 at 11:15; Status DC Active Scripts Active Ventolin Hfa Inhaler (Albuterol Sulfate) 18 Gm Hfa.aer.ad 2 Puff INH Q4HRS Reported Ativan (Lorazepam) 1 Mg Tablet 1 Mg PO BID Xanax (Alprazolam) 2 Mg Tablet 2 Mg PO BID PRN Remeron (Mirtazapine) 15 Mg Tablet 15 Mg PO DAILY Lexapro (Escitalopram Oxalate) 20 Mg Tablet 30 Mg PO HS Vraylar (Cariprazine Hydrochloride) 6 Mg Capsule 6 Mg PO HS Allergies Allergies: Coded Allergies: No Known Drug Allergies (Unverified , 12/08/20) Physical Exam Physical Exam There is a 4-5 cm mass mid right buttocks. No tenderness and no infection. Obv ious to touch and vision. Ths is not in the skin and is beneath the skin. It is moveable. General: Alert, Oriented X3 Lungs: Clear to auscultation Breasts: Normal Abdomen: Normal bowel sounds, Soft, No tenderness, No hepatosplenomegaly, No masses Rectal Exam: not examined Extremities: No clubbing, No cyanosis, No edema, Normal pulses, No tenderness/swelling, Other Vitals Vitals Vital Signs Date Time Temp Pulse Resp B/P (MAP) Pulse Ox O2 Delivery O2 Flow Rate FiO2 12/08/20 10:33 72 20 97 Room Air 12/08/20 10:33 98.7 98.7 VTE Prophylaxis Ordered VTE Prophylaxis Devices: No VTE Pharmacological Prophylaxi: Yes Justifications for Admission Other Justification VALERY VALLADARES MD Dec 08, 2020 12:14
--- NOTE | 2020-12-08 23:34 | OP ---
DATE OF SURGERY: 12/08/2020 SURGEON: Don Valladares MD PREOPERATIVE DIAGNOSIS: Mass, right buttocks. POSTOPERATIVE DIAGNOSIS: Mass, right buttocks. ANESTHESIA: 1% lidocaine with epinephrine. PROCEDURE: Excision mass, right buttocks. TECHNIQUE: The lesion being about 4 cm in size was noted. The mid portion of the right buttocks about 3-4 cm from where the crease of the buttocks begins. This was lateral to it. As such, a transverse incision was made over the mass using a 15 blade, taken down through the skin. The mass was fairly firm and was not entered during the procedure. We identified as we got through the skin and then pulling up on the tissues around the mass, we were able to use Metzenbaum scissors once we got through the skin to slowly cut the mass from the surrounding structures. It was not a skin tumor, it was in the subcutaneous and was slowly removed grossly totally from the surrounding structures. There was surprisingly little bleeding and as such, we proceeded then once the mass was completely out and sent to the lab to close the wound. A 4-0 Vicryl was used to close the deep tissues and subcutaneous in an interrupted fashion and then 4-0 nylon was used to close the skin in an interrupted fashion. The procedure was terminated as sterile Tegaderm dressing was then applied. The blood loss was probably less than 2-3 mL. Fluids given were none. No drains were used and the condition of the patient was satisfactory as she has returned to the recovery room. DON VALLADARES MD DR: NATALIIA/luz JOB#: [id number] / [id number] RUTH
--- NOTE | 2020-12-22 11:44 | PATHOLOGY ---
[facility] Accession Number: [id number] . 01 Material submitted: . buttock - MASS BUTTOCKS . 01 Clinical history: . UNK . 02 Diagnosis: Skin and subcutaneous tissue, right buttocks mass excision: - Epidermal inclusion cyst. (JPM:jayro; 12/10/2020) QMS 12/10/2020 1526 Local . 02 Electronically signed: . Brandin Michel MD, Pathologist NPI- [id number] . 01 Gross description: . The specimen is received in formalin, labeled "Salcido, Caro, mass buttocks" and consists of an elliptical segment of pink skin measuring 3.8 x 1.5 cm with an intact cutaneous cyst measuring 3.0 x 3.0 cm. The cyst contains soft amorphous white-price material. Desktop Administrator sections are submitted in A1-A2. (SDY; 12/09/2020) SYU/SYU 12/09/2020 1434 Local . 02 Pathologist provided ICD-10: L72.0 . 02 CPT . 862790 Performed at: 01 [facility] [address] [facility] [address], [place] [id number] MD Joshua Dorman MD Phone: [phone] Performed at: 02 [facility] [address] [place], [place] [id number] MD Brandin Michel MD Phone: [phone]
== END | disposition home or self-care (01) ==
LOC: SURG 09:43
PROVIDERS: ATTEND Specialist
DX: L72.0 Epidermal cyst (principal); K21.9 Gastro-esophageal reflux disease without esophagitis; F41.9 Anxiety disorder, unspecified; F32.9 Major depressive disorder, single episode, unspecified; F17.210 Nicotine dependence, cigarettes, uncomplicated; Z87.440 Personal history of urinary (tract) infections; Z79.899 Other long term (current) drug therapy; Z98.890 Other specified postprocedural states; Z72.89 Other problems related to lifestyle
CPT/HCPCS: 27043; 88304; J3490

== ENCOUNTER → 2021-02-15 | Day surgery (SDC) | payer MEDICAID ==
[~2021-02-15] MED LIST changes: +PARO20TA99 PO
[2021-02-15 11:24] VITALS: BP 113/73
[2021-02-15] MEDS: LIDOCAINE 1%/EPI 1:100,000 20 ML VIAL. INJ ONE (12:50)
--- NOTE | 2021-02-15 13:21 | PDOC ---
SURGICAL PROGRESS NOTE DATE: 02/15/21 TIME: 13:18 Op Note: Surgeon...........................................Rasheed Pre op diag.......................................abscess left breast Post op diag.....................................same Anesthesia.......................................1% lidocaine with epi Procedure........................................I and SD abscess with cultures. Drains.............................................1/4 inch alexus drain Fluids..............................................none Blood loss.........................................4cc Condition.........................................satisfactory Vital Signs Vital Signs Date Time Temp Pulse Resp B/P (MAP) Pulse Ox O2 Delivery O2 Flow Rate FiO2 02/15/21 11:24 88 20 99 Labs Laboratory Tests Test 02/15/21 11:10 SARS-CoV-2 Antigen (Rapid) Negative (NEGATIVE) Laboratory Tests Test 02/15/21 11:10 SARS-CoV-2 Antigen (Rapid) Negative (NEGATIVE) Justicifation of Admission Dx: Justifications for Admission: Justification of Admission Dx: Yes VALERY VALLADARES MD Feb 15, 2021 13:21
--- NOTE | 2021-02-15 13:28 | DISCH ---
DISCHARGE INSTRUCTIONS Condition on Discharge Condition on Discharge: Stable Activity After Discharge Activity Instructions for Disc: Activity as tolerated Lifting Instructions after Dis: No heavy lifting Driving Instructions after Dis: Do not drive today Diet after Discharge Diet after Discharge: Clear Liquid, Regular Additional Diet Restrictions: regular Wound Incision Care Wound/Incision Care: Other, see below Other wound/incision instructi: irrgate with H2O@ tid..may shower with dressing on. Contacting the DR. after DC Call your doctor for: Concerns you may have Follow-Up Follow up with: callo and make appt to see me i 1 week VALERY VALLADARES MD Feb 15, 2021 13:28
--- NOTE | 2021-02-15 20:12 | OP ---
DATE OF SURGERY: 02/15/2021 SURGEON: Don Valladares MD PREOPERATIVE DIAGNOSIS: Abscess of the left breast. POSTOPERATIVE DIAGNOSIS: Abscess of the left breast. ANESTHESIA: General. PROCEDURE: Incision and drainage of the abscess of left breast. TECHNIQUE: Under local anesthesia using 1% lidocaine, the patient was properly prepped and draped in routine fashion. The anesthesia as stated with 1% lidocaine with epinephrine. We went around the areolar area where the pain was and the mass was and there was also a small dimple where it had drained a little bit though insufficiently. We therefore anesthetized the skin using a 25-gauge needle and the epinephrine with Xylocaine. We then made a small incision with a 15 blade, carried into the wound culture of the contents of the abscess for aerobic and anaerobic. We then opened the wound all the way up through the small dimple that at the external orifice of this recurring abscess. We opened this up widely. We then placed a [place] drain quarter inch into the wound, sutured in place using 2-0 silk in 2 areas over so that it would not come out. The drain was cut, so that it only extended about a quarter of an inch or half inch above the skin. Sterile dressing was applied and the procedure was terminated. She knows to keep the area clean with peroxide and I will see her back in about 1 week to remove the drain etc. The dressing having been applied after we put the drain in and secured it with 2-0 silk sutures and to hold the drain in place. The blood loss was probably about 3 mL. FLUIDS GIVEN: No fluids were given. DRAINS: Quarter-inch [place] drain. CONDITION OF THE PATIENT: Satisfactory as she has returned to the holding area. DON VALLADARES MD DR: NATALIIA/luz JOB#: [id number] / [id number] RUTH
--- NOTE | 2021-02-23 13:13 | HP ---
ADMIT DATE: 02/15/2021 HISTORY OF PRESENT ILLNESS: The patient has had recurrent infections of the left breast medial aspect at the nipple. She now has another rib area that is tender. It has been draining somewhat and she comes to the hospital. PAST MEDICAL HISTORY: Shows that she has had one child. She has normal childhood diseases. She has had these recurrent infections of the left breast with childbirth 3 or 4 years ago. SOCIAL HISTORY: She drinks only socially, does not use drugs and does not smoke. FAMILY HISTORY: Noncontributory. ALLERGIES: ALSO NOT RELEVANT. PHYSICAL EXAMINATION: Shows a left breast to have a draining abscess in the medial aspect at about the 10 o'clock position at the areolar margin. There are scars of previous surgery. The right breast was unremarkable. Axillary areas are negative. Chest and heart unremarkable, clear with no murmurs. IMPRESSION: Infected infection, left breast with abscess formation. PLAN: Drain. VALERY VALLADARES MD DR: NATALIIA/luz JOB#: [id number] / [id number] RUTH
== END | disposition home or self-care (01) ==
LOC: SURG 11:12
PROVIDERS: ATTEND Specialist
DX: N61.1 Abscess of the breast and nipple (principal); K21.9 Gastro-esophageal reflux disease without esophagitis; F41.9 Anxiety disorder, unspecified; F32.9 Major depressive disorder, single episode, unspecified; F17.210 Nicotine dependence, cigarettes, uncomplicated; Z87.440 Personal history of urinary (tract) infections; Z79.899 Other long term (current) drug therapy; Z98.890 Other specified postprocedural states; Z72.89 Other problems related to lifestyle; Z20.822 Contact with and (suspected) exposure to COVID-19
CPT/HCPCS: 10061; 87071; 87075; 87076; 87077; 87426; J3490; U0003